=== PATIENT | female | born 1995 | race Caucasian/White ===

== ENCOUNTER 2021-07-22 12:31 | Emergency (ER) | payer BC ==
[~2021-07-22] VITALS: Ht 170.2 cm; Wt 56.7 kg
[2021-07-22] MEDS ORDERED: MIRENA1 EACH IY (12:53)
[2021-07-22] MEDS ORDERED: ALDACTONE100 MG PO (12:53)
== END 2021-07-22 22:02 | disposition home or self-care (01) ==
LOC: ER 12:31
DX: R10.31 Right lower quadrant pain (principal); Z32.02 Encounter for pregnancy test, result negative; Z97.5 Presence of (intrauterine) contraceptive device
CPT/HCPCS: 74177; Q9965